=== PATIENT | female | born 1990 | race Caucasian/White ===

== ENCOUNTER 2017-10-31 05:45 | Observation (INO) | payer BC ==
[~2017-10-31] VITALS: Ht 160 cm; Wt 70.3 kg
== END 2017-10-31 07:30 | disposition home or self-care (01) ==
LOC: SPU 05:45
PROVIDERS: ADMIT Obstetrics & Gynecology; ATTEND Obstetrics & Gynecology
DX: O26.893 Other specified pregnancy related conditions, third trimester (principal); N89.8 Other specified noninflammatory disorders of vagina; Z3A.38 38 weeks gestation of pregnancy
CPT/HCPCS: 81002; G0378

== ENCOUNTER 2017-11-01 21:12 | Inpatient (IN) | payer BC ==
[~2017-11-01] VITALS: Ht 160 cm; Wt 70.3 kg
[2017-11-01] MEDS ORDERED: LR 1,000 ML IV ONE (22:46)
[2017-11-01] MEDS ORDERED: LR 500 ML IV ONE (22:46)
[2017-11-01] MEDS ORDERED: OXYTOCIN/NORMAL SALINE 1,000 ML IV SCH (22:46)
[2017-11-01] MEDS ORDERED: LR 1,000 ML IV SCH (22:46)
[2017-11-01] MEDS ORDERED: NALBUPHINE HCL 10 MG/ML AMP IVP PRN (23:00)
[2017-11-01] MEDS ORDERED: TERBUTALINE SULFATE 1 MG/ML VIAL SUBCUT ONE (23:00)
[2017-11-01] MEDS ORDERED: MISOPROSTOL 100 MCG TABLET (CYTOTEC) PO PRN (23:00)
[2017-11-01 23:23] LABS: BASOPHILS # (AUTO) 0.1 K/uL (0.0-0.2); BASOPHILS % (AUTO) 0.7 % (0.0-2.0); EOSINOPHILS % (AUTO) 0.2 % (0.0-4.0); HEMATOCRIT 36.6 % (36-48); LYMPHOCYTES # (AUTO) 1.9 K/uL (1.0-5.5); LYMPHOCYTES % (AUTO) 16.3 % (20.5-51.5); MEAN CORPUSCULAR HEMOGLOBIN 27 pg (27-31); MEAN CORPUSCULAR HGB CONC 33 % (32-36); MEAN CORPUSCULAR VOLUME 83 fL (79.0-98.0); MONOCYTES # (AUTO) 0.4 K/uL (0.0-1.0); MONOCYTES % (AUTO) 3.2 % (1.7-9.3); NEUTROPHILS % (AUTO) 79.6 % (40.0-70.0); PLATELET COUNT (AUTO) 232 K/uL (130-430); RED BLOOD CELL COUNT(AUTO) 4.42 MIL/uL (4.2-6.2); RED CELL DISTRIBUTION WIDTH 13.6 % (9.0-15.0); WHITE BLOOD COUNT (AUTO) 11.4 K/uL (4.8-10.8)
[2017-11-02 01:15] VITALS: BP_SYST 113
[2017-11-02] MEDS ORDERED: OXYTOCIN/NORMAL SALINE 1,000 ML IV ONE (03:14)
[2017-11-02] MEDS ORDERED: OXYTOCIN/NORMAL SALINE 1,000 ML IV SCH (03:14)
[2017-11-02] MEDS ORDERED: OXYCODONE/ACETAMINOPHEN 5-325 TABLET PO PRN ×2 (03:15)
[2017-11-02] MEDS ORDERED: MEASLES,MUMPS&RUBELLA VACC/PF 12500 UNIT/0.5 ML VIAL SUBQ PRN (03:15)
[2017-11-02] MEDS ORDERED: SENNOSIDES/DOCUSATE SODIUM 1 TAB TABLET(SENOKOT-S) PO PRN (03:15)
[2017-11-02] MEDS ORDERED: ANUSOL 1 EA SUPP.RECT (PREPARATION H) RC PRN (03:15)
[2017-11-02] MEDS ORDERED: RHO(D) IMMUNE GLOBULIN/MALTOSE 1500 UNITS/1.3 ML (WINHRO) IM PRN (03:15)
[2017-11-02] MEDS ORDERED: GLYCERIN/WITCH HAZEL (TUCKS PADS) TP PRN (03:15)
[2017-11-02] MEDS ORDERED: METHYLERGONOVINE MALEATE 0.2 MG TABLET PO PRN (03:15)
[2017-11-02] MEDS ORDERED: DERMOPLAST SPRAY TP PRN (03:15)
[2017-11-02] MEDS ORDERED: DOCUSATE SODIUM 100 MG CAPSULE PO PRN (03:15)
[2017-11-02] MEDS ORDERED: ACETAMINOPHEN 325 MG TABLET PO PRN (03:15)
[2017-11-02] MEDS ORDERED: LANOLIN 7 GM OINT. TP PRN (03:15)
[2017-11-02] MEDS ORDERED: HYDROCORTISONE 0.5%, 28.35 GM TOPICAL CREAM TP PRN (03:15)
[2017-11-02] MEDS ORDERED: DIPH-TET-PERTUS Vaccine 0.5 ML VIAL (ADACEL) I.M. PRN (03:15)
[2017-11-02] MEDS ORDERED: METHYLERGONOVINE MALEATE 0.2 MG/ML AMP ONE (03:19)
[2017-11-02] MEDS ORDERED: METHYLERGONOVINE MALEATE 0.2 MG/ML AMP IM ONE (03:30)
[2017-11-02] MEDS: IBUPROFEN 600 MG TABLET PO SCH ×4 (05:37→23:59)
[2017-11-02] MEDS ORDERED: TEMAZEPAM 15 MG CAPSULE PO PRN (21:00)
[2017-11-03] MEDS: IBUPROFEN 600 MG TABLET PO SCH ×2 (06:20→12:11)
[2017-11-03] MEDS ORDERED: LIDOCAINE PF 1% 30ML(POUR BTL) INJ ONE (06:43)
[2017-11-03] MEDS ORDERED: MINERAL OIL 30 ML UDC PO ONE (06:43)
[2017-11-03 06:44] LABS: HEMATOCRIT 30.5 % (36-48)
[2017-11-03 06:58] LABS: HEMOGLOBIN 9.9 g/dL (12.0-16.0)
== END 2017-11-03 15:15 | disposition home or self-care (01) | DRG 775 ==
LOC: OBSVTOIN 21:12 → SPU 21:12
PROVIDERS: ADMIT Obstetrics & Gynecology; ATTEND Obstetrics & Gynecology
PROC: 10E0XZZ Delivery of Products of Conception, External Approach (ICD-10-PCS; principal; 2017-11-02)
PROC: 0HQ9XZZ Repair Perineum Skin, External Approach (ICD-10-PCS; 2017-11-02)
DX: O77.0 Labor and delivery complicated by meconium in amniotic fluid (principal); O70.0 First degree perineal laceration during delivery; Z37.0 Single live birth; Z3A.38 38 weeks gestation of pregnancy
CPT/HCPCS: 36415; 85018-TC; 85025; 86592; 86886; 86900; 86901; J2001; J2210; J2300; J2590; J7120

== ENCOUNTER 2023-03-31 16:37 | Emergency (ER) | payer BC ==
[~2023-03-31] VITALS: Ht 160 cm; Wt 70.8 kg
[2023-03-31 16:43] VITALS: BP_SYST 138; PULSE 80; RESP 16; TEMP 97.6; O2SAT 98
--- NOTE | 2023-03-31 16:47 | NUR ---
Placed in room [address] monitor, blood pressure machine and pulse oximeter. To gown for exam. Side rails up. Report given to
--- NOTE | 2023-03-31 16:47 | NUR ---
RECEIVED PT FROM CINDY HUNTLEY. PT BIBS WITH C/O LEFT ARM NUMBNESS X 2 DAYS. PT HAS NO PMH. PT IS AAOX4. ON R/A. DENIES N/V/D/C. DISTAL PULSES NORMAL. SKIN CDI, NO EDEMA. DENIES PAIN. VSS. SIDERAILS UP X2.
--- NOTE | 2023-03-31 17:00 | NUR ---
DR. CURRAN AT BEDSIDE TO ASSESS PT. EKG COMPLETED.
--- NOTE | 2023-03-31 17:10 | NUR ---
U/A OBTAINED, HCG NEGATIVE, PT TAKEN TO CT SCAN.
--- NOTE | 2023-03-31 17:35 | NUR ---
PT BACK FROM CT SCAN AND PLACE ON MONITOR.
[2023-03-31 18:07] LABS: BASOPHILS % (AUTO) 0.9 % (0.0-2.0); EOSINOPHILS # (AUTO) 0.1 K/uL (0.0-0.4); HEMATOCRIT 31.9 % (36-48); LYMPHOCYTES # (AUTO) 1.6 K/uL (1.0-5.5); LYMPHOCYTES % (AUTO) 35.3 % (20.5-51.5); MEAN CORPUSCULAR HEMOGLOBIN 25 pg (27-31); MEAN CORPUSCULAR HGB CONC 31 % (32-36); MEAN CORPUSCULAR VOLUME 78 fL (79.0-98.0); MONOCYTES # (AUTO) 0.2 K/uL (0.0-1.0); NEUTROPHILS # (AUTO) 2.6 K/uL (1.8-7.7); NEUTROPHILS % (AUTO) 56.8 % (40.0-70.0); PLATELET COUNT (AUTO) 299 K/uL (130-430); RED BLOOD CELL COUNT(AUTO) 4.08 MIL/uL (4.2-6.2); RED CELL DISTRIBUTION WIDTH 16.5 % (9.0-15.0); WHITE BLOOD COUNT (AUTO) 4.6 K/uL (4.8-10.8)
[2023-03-31 18:22] LABS: BARBITURATE, URINE NEGATIVE (NEG <=200); BENZODIAZEPINE, URINE NEGATIVE (NEG <=150); CANNABINOID, URINE NEGATIVE (NEG <=50); COCAINE, URINE NEGATIVE (NEG <=150); METHAMPHETAMINES SCREEN,URINE NEGATIVE (NEG <=500); OPIATE, URINE NEGATIVE (NEG <=100); PHENCYCLIDINE SCREEN,URINE NEGATIVE (NEG <=25); URINE AMPHETAMINE NEGATIVE (NEG <=500); URINE METHADONE NEGATIVE (NEG <=200); URINE OXYCODONE SCREEN NEGATIVE (NEG <=100); URINE PROPOXYPHENE SCREEN NEGATIVE (NEG <=300)
[2023-03-31 18:23] LABS: UR TRICYCLIC ANTIDEPRESSANTS NEGATIVE (NEG <=300)
[2023-03-31 18:26] LABS: BILIRUBIN,URINE NEGATIVE (NEGATIVE); BLOOD, URINE NEGATIVE (NEGATIVE); CLARITY/URINE CLEAR (CLEAR); COLOR,URINE STRAW (YELLOW); GLUCOSE,URINE NEGATIVE (NEGATIVE); KETONES,URINE NEGATIVE (NEGATIVE); LEUKOCYTE ESTERASE ,URINE TRACE (NEGATIVE); NITRITE, URINE NEGATIVE (NEGATIVE); PROTEIN URINE NEGATIVE (NEGATIVE); UROBILINOGEN,URINE 0.2 (0.2-1.0)
[2023-03-31 18:28] LABS: ALANINE AMINOTRANSFERASE 24 U/L (12-78); ALBUMIN 3.8 g/dL (3.4-4.8); ANION GAP 9 (5-15); ASPARTATE AMINOTRANSFERASE 17 U/L (10-37); CALCIUM 8.6 mg/dL (8.4-11.0); CHLORIDE 102 mmol/L (98-107); CREATININE 0.72 mg/dL (0.55-1.30); GFR AFRICAN AMERICAN 119 mL/min (>90); GLUCOSE 95 mg/dL (74-106); TOTAL BILIRUBIN 0.2 mg/dL (0.0-1.0); UREA NITROGEN, BLOOD 14 mg/dL (8-21)
--- NOTE | 2023-03-31 18:34 | NUR ---
DR. MARTIN AT BEDSIDE FOR EXAM.
[2023-03-31 18:39] LABS: ALCOHOL, BLOOD < 3 mg/dL (<10)
[2023-03-31 18:50] LABS: BACTERIA,URINE FEW /HPF (None Seen); RBC,URINE 0-3 /HPF (0-3)
--- NOTE | 2023-03-31 19:30 | NUR ---
PT ENDORSED TO CINDY VILLASENOR. ALL QUESTIONS AND CONCERNS ADDRESSED.
[2023-03-31 19:33] LABS: PROTHROMBIN TIME 10.2 SECS (9.5-12.5)
[2023-03-31 19:44] VITALS: BP_SYST 119; PULSE 74; RESP 19; TEMP 98; O2SAT 99
--- NOTE | 2023-03-31 20:00 | NUR ---
Patient given written and verbal discharge instructions and verbalizes understanding. ER MD discussed with patient the results and treatment provided. Patient in stable condition. ID arm band removed. Patient educated on pain management and to follow up with PMD. Pain Scale 0/10. Opportunity for questions provided and answered.
== END 2023-03-31 19:44 | disposition home or self-care (01) ==
LOC: SED 16:37
DX: R20.2 Paresthesia of skin (principal); Z79.899 Other long term (current) drug therapy
CPT/HCPCS: 99285; 70450; 71045; 80307; 80053; 85025; 85610; 85730; 87086; 84484; 36415; 93005; 76376; 81025; 81000; G0482